=== PATIENT | female | born 1970 | race Caucasian/White ===

== ENCOUNTER 2019-03-19 10:22 | Inpatient (IN) | payer OTHER ==
[~2019-03-19] VITALS: Ht 167.6 cm; Wt 54.2 kg
[2019-03-19 10:31] VITALS: BP 207/158
[2019-03-19] MEDS ORDERED: NORVASC2.5 MG PO (10:34)
[2019-03-19] MEDS ORDERED: COREG6.25 MG PO (10:35)
[2019-03-19 11:55] LABS: ABSOLUTE BASOPHILS 0.1 thou/uL (0.0-0.2); ABSOLUTE EOSINOPHILS 0.1 thou/uL (0.0-0.7); ABSOLUTE LYMPHOCYTES 1.5 thou/uL (0.8-5.3); ABSOLUTE MONOCYTES 0.9 thou/uL (0.0-1.2); BASOPHILS 0.9 %; EOSINOPHILS 1.1 %; HEMATOCRIT 43.6 % (37.0-47.0); HEMOGLOBIN 14.6 gm/dL (12.0-15.0); LYMPHOCYTES 17.6 %; MCH 31.2 pg (26.0-34.0); MCHC 33.5 g/dL (28.0-37.0); MCV 93.2 fL (80.0-100.0); MONOCYTES 10.5 %; MPV 9.5 fl. (7.2-11.1); NUCLEATED RBCS 0 /100WBC; PLATELET COUNT* 206 thou/uL (150-400); POLYS 69.9 %; RBC 4.67 mil/uL (4.20-5.00); WBC 8.5 thou/uL (4.0-11.0)
[2019-03-19 12:10] LABS: ANION GAP 8 mmol/L (7-16); BUN 41 mg/dL (7-18); CALCIUM 9.1 mg/dL (8.5-10.1); CHLORIDE 105 mmol/L (98-107); CO2 26 mmol/L (21-32); CREATININE 1.7 mg/dL (0.6-1.3); GLUCOSE 103 mg/dL (70-99); POTASSIUM 3.9 mmol/L (3.5-5.1); SODIUM 139 mmol/L (136-145)
[2019-03-19 12:26] LABS: ALKALINE PHOSPHATASE 87 U/L (46-116); NT-PRO BRAIN NAT PEPTIDE > 35000 pg/mL (<300); SGOT 28 U/L (15-37); SGPT 40 U/L (30-65); TOTAL BILIRUBIN 0.9 mg/dL (<0.1-1.0); TOTAL PROTEIN 6.9 g/dL (6.4-8.2); TROPONIN-I LEVEL 0.14 ng/mL (<0.06)
[2019-03-19 14:34] LABS: URINE BILIRUBIN NEGATIVE (Negative); URINE BLOOD 1+ (Negative); URINE CLARITY CLEAR; URINE COLOR YELLOW; URINE GLUCOSE-RANDOM NEGATIVE (Negative); URINE KETONES NEGATIVE (Negative); URINE LEUKOCYTES-REFLEX NEGATIVE (Negative); URINE PROTEIN 2+ (Negative); URINE UROBILINOGEN 0.2 E.U./dl (0.2-1.0)
[2019-03-19 14:36] LABS: URINE NITRITE-REFLEX POSITIVE (Negative)
[2019-03-19 14:41] LABS: SQUAMOUS >10 Many /LPF (0-3)
[2019-03-19 14:42] LABS: URINE RBC 0-2 Rare /HPF (0-2); URINE WBC-REFLEX 0-5 Rare /HPF (0-5)
[2019-03-19 14:43] LABS: BACTERIA-REFLEX 1-9 Few /HPF (None Seen); CRYSTALS None Seen /LPF (None Seen); HYALINE CASTS 0-3 Few /LPF (None Seen); MUCUS None Seen strn/LPF (None Seen)
[2019-03-19 15:50] VITALS: BP 194/119
[2019-03-19 16:15] VITALS: BP 182/110
[2019-03-19 18:55] VITALS: BP 173/113
[2019-03-19 20:00] VITALS: BP 152/104
[2019-03-19 23:48] LABS: AMP/METHAMP POSITIVE (Negative); BARBITURATES Negative (Negative); BENZODIAZEPINES Negative (Negative); COCAINE Negative (Negative); METHADONE Negative (Negative); OPIATES Negative (Negative); PCP Negative (Negative); THC POSITIVE (Negative)
[2019-03-19 23:49] LABS: CALCIUM 8.8 mg/dL (8.5-10.1); CREATININE 2.1 mg/dL (0.6-1.3); MAGNESIUM 2.1 mg/dL (1.8-2.4); POTASSIUM 3.4 mmol/L (3.5-5.1)
[2019-03-20] VITALS (7 sets, daily range): BP systolic 119–182; BP diastolic 84–111
--- NOTE | 2019-03-20 14:16 | 2DMMODE ---
[place] [address] 2 D/M-MODE ECHOCARDIOGRAM Name: EDNA WITT Room: [address] IN .R.#: [id number] Admission: 03/19/19 Attend Phys: Valentin Bonilla Discharge: Date of : 70 Date of Service: 03/20/19 1415 Report #: [id number] THIS REPORT FOR: //name// APPROVED REPORT Study performed: 03/20/2019 11:22:08 EXAM: Comprehensive 2D, Doppler, and color-flow Echocardiogram Patient Location: Bedside BSA: 1.59 HR: 64 bpm BP: 147/96 mmHg Other Information Study Quality: Good Indications Dyspnea 2D Dimensions IVSd: 13.27 (7-11mm) LVOT Diam: 20.76 (18-24mm) LVDd: 48.31 mm PWd: 12.43 (7-11mm) Ascending Ao: 31.45 (22-36mm) LVDs: 35.25 (25-40mm) Aortic Root: 30.45 mm Volumes Left Atrial Volume (Systole) LA ESV Index: 30.30 mL/m2 Aortic Valve AoV Peak Stefano.: 1.36 m/s AO Peak Gr.: 7.45 mmHg LVOT Max P.47 mmHg AO Mean Gr.: 4.18 mmHg LVOT Mean P.80 mmHg LVOT Max V: 0.93 m/s AO V2 VTI: 17.46 cm LVOT Mean V: 0.62 m/s HUGO (VTI): 2.65 cm2 LVOT V1 VTI: 13.67 cm Mitral Valve E/A Ratio: 1.04 MV Decel. Time: 229.99 ms MV E Max Stefano.: 0.65 m/s MV PHT: 66.70 ms MVA (PHT): 3.30 [place] [address] 2 D/M-MODE ECHOCARDIOGRAM Name: EDNA WITT Room: [address] IN [facility]#: [id number] Admission: 03/19/19 Attend Phys: Valentin Bonilla Discharge: Date of : 70 Date of Service: 03/20/19 1415 Report #: [id number] TDI E/Lateral E': 10.83 E/Medial E': 13.00 Medial E' Stefano.: 0.05 m/s Lateral E' Stefano.: 0.06 m/s Pulmonary Valve PV Peak Stefano.: 1.00 m/s PV Peak Gr.: 3.96 mmHg Tricuspid Valve RAP Estimate: 5.00 mmHg TR Peak Gr.: 32.16 mmHg RVSP: 37.16 mmHg PA Pressure: 37.16 mmHg Left Ventricle The left ventricle is normal size. There is moderate diffuse hypokinesis of left ventricular wall motion. Moderate to severe concentric left ventricular hypertrophy. Left ventricular systolic function is moderately decreased. LVEF is 35-40%. The left ventricular diastolic function is normal. Right Ventricle The right ventricle is normal size. The right ventricular systolic function is normal. Atria Left atrium is mildly dilated. The right atrium size is normal. Aortic Valve Mild aortic valve sclerosis. Trace aortic regurgitation. There is no aortic valvular stenosis. Mitral Valve The mitral valve is normal in structure. Trace mitral regurgitation. No evidence of mitral valve stenosis. Tricuspid Valve The tricuspid valve is normal in structure. Trace tricuspid regurgitation. Pulmonic Valve The pulmonary valve is normal in structure. There is no pulmonic valvular regurgitation[place] [address] 2 D/M-MODE ECHOCARDIOGRAM Name: MIRYAMEDNA Maguire Narcisa Room: [address]#: [id number] Admission: 03/19/19 Attend Phys: Valentin Bonilla Discharge: Date of : 70 Date of Service: 03/20/19 1415 Report #: [id number] The aortic root is normal in size. IVC is normal in size and collapses >50% with inspiration. Pericardium There is a pericardial effusion. <Conclusion> The left ventricle is normal size. Moderate to severe concentric left ventricular hypertrophy. Left ventricular systolic function is moderately decreased. LVEF is 35-40%. The right ventricle is normal size. Left atrium is mildly dilated. Mild aortic valve sclerosis. There is no aortic valvular stenosis. Trace aortic regurgitation. The mitral valve is normal in structure. Trace mitral regurgitation. The tricuspid valve is normal in structure. IVC is normal in size and collapses >50% with inspiration. There is a pericardial effusion. There is moderate diffuse hypokinesis of left ventricular wall motion. <ELECTRONICALLY SIGNED> By: Fernando Moffett MD, FACC 03/20/19 1415 1415 1415 Fernando Moffett MD, FACC /INF
[2019-03-20 16:11] LABS: HEPATITIS B SURFACE AG Negative (Negative)
--- NOTE | 2019-03-20 16:59 | EKG ---
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 Therapist: LUNA : 1970 Requested By: Neeru Joseph Order Number: [id number] MD: Fernando Moffett Measurements Intervals [place] Rate: 82 P: 53 FL: 143 QRS: 42 QRSD: 83 T: 78 QT: 352 QTc: 411 Interpretive Statements Sinus rhythm Left atrial enlargement LVH with secondary repolarization abnormality Anterior infarct, age indeterminate Baseline wander in lead(s) V3 No previous ECG available for comparison Electronically Signed On 03-20-2019 16:59:02 CDT by Fernando Moffett [email or web address] <ELECTRONICALLY SIGNED> By: Fernando Moffett MD, [facility] 03/20/19 1659 1138 1138 Fernando Moffett MD, [facility] /EPI
--- NOTE | 2019-03-20 17:04 | EKG ---
[place] [address] ELECTROCARDIOGRAM REPORT Name: EDNA WITT Room: [address] ADM IN M.R.#: [id number] Admission: 03/19/19 Attend Phys: Sierra Smyth Discharge: Date of : 70 Report #: [id number] THIS REPORT FOR: //name// [facility] Test Date: 2019-03-19 Test Time: 18:52:01 Pat Name: EDNA WITT Department: Room: [address] Gender: F Chip Mucker: JOSE FREITAS : 1970 Requested By: Valentin Bonilla Order Number: [id number] Lalo MD: Fernando Moffett Measurements Intervals [place] Rate: 84 P: 53 SC: 141 QRS: 20 QRSD: 86 T: 244 QT: 398 QTc: 471 Interpretive Statements Sinus rhythm Left atrial enlargement LVH with secondary repolarization abnormality Baseline wander in lead(s) V6 No previous ECG available for comparison Electronically Signed On 03-20-2019 17:03:59 CDT by Fernando Moffett [email or web address] <ELECTRONICALLY SIGNED> By: Fernando Moffett MD, [facility] 03/20/19 1705 185 51 Fernando Moffett MD, [facility] /EPI
[2019-03-21] VITALS (7 sets, daily range): BP systolic 161–179; BP diastolic 96–114
[2019-03-21] MEDS ORDERED: CARVEDILOL12.5 MG PO (11:33)
[2019-03-21] MEDS ORDERED: AMLODIPINE BESYL5 M1 PO (11:33)
[2019-03-21] MEDS ORDERED: ZESTRIL40 MG PO (11:33)
--- NOTE | 2019-03-21 13:04 | CARDNUC ---
[place] [address] CARDIAC NUCLEAR IMAGING REPORT Name: MIRYAMEDNA Narcisa Room: [address] IN [facility]#: [id number] Admission: 03/19/19 Attend Phys: Valentin Bonilla Discharge: Date of : 70 Date of Service: 03/21/19 1304 Report #: [id number] THIS REPORT FOR: //name// APPROVED REPORT Imaging Protocol: Rest Tc-99m/Stress Tc-99m 1 day Study performed: 03/21/2019 09:24:07 Indication: Congestive Heart Failure, Troponin elevation, Cardiomyopathy, Dyspnea Patient Location: In-Patient Room #: [facility] Stress Tech: Dania Clarke Stress Nurse: Erica Gee RN NM Tech:DANIEL Pisano Ht: 5 ft 5 in Wt: 119 lbs BSA: 1.59 m2 BMI: 19.80 Medical History Medical History: Cardiomyopathy, CHF, Current Smoker, Fatigue, HTN, No history of CAD, SOB, Weakness, HX TIA's. Medications: Coreg, Amlodipine, Lisinopril. Allergies: No known drug allergies Cardiac Risk Factors: Current Smoker, HTN, SOB, CHF, Elevated Troponins. Previous Cardiac Procedures: None Pretest Chest Pain Characteristics: No chest pain Exercise History: Physically active Physical Disabilities: Generalized weakness/fatigue. Meds Held (24 hrs): Coreg held 12 hours. Resting Data Rest SPECT myocardial perfusion imaging was performed in supine position 30 minutes following the intravenous injection of 10.4 mCi of Tc-99m Sestamibi. Time of rest injection: 0800 Date: 03/21/2019 The images were gated to evaluate regional wall motion and calculate left ventricular ejection fraction. Administration Route: IV Administration Site: Right AC Pharmacologic Stress Pharmacologic stress test was performed by injecting Regadenoson 0.4 mg IV push over 10-15 seconds immediately [place] [address] CARDIAC NUCLEAR IMAGING REPORT Name: EDNA WITT Room: [address] IN [facility]#: [id number] Admission: 03/19/19 Attend Phys: Valentin Bonilla Discharge: Date of : 70 Date of Service: 03/21/19 1304 Report #: [id number] injection of 34.1 mCi of Tc-99m Sestamibi. Time of stress injection: 934 Date: 03/21/2019 Administration Route: IV Administration Site: Right AC Gated Stress SPECT was performed 40 minutes after stress injection. The images were gated to evaluate regional wall motion and calculate left ventricular ejection fraction. Prone imaging was performed. Stress Test Details Stress Test: Pharmacologic stress was paired with low level exercise. Reason for pharmacologic stress test: Generalized weakness/fatigue.. HR Max Heart Rate (APMHR): 172 bpm Resting HR: 72 bpm Target HR (85% APMHR): 146 bpm Max HR Achieved: 111 bpm % of APMHR: 64 Recovery HR: 75 bpm BP Resting BP: 194/111 mmHg Max BP: 225/120 mmHg Recovery BP: 179/111 mmHg ECG Resting ECG: Sinus Rhythm, LVH with repolarization changes Stress ECG: Sinus Rhythm, LVH with repolarization changes ST Change: None Arrhythmia: None Recovery ECG: Sinus Rhythm, LVH with repolarization changes Recovery ST Change: None Recovery Arrhythmia: None Clinical Reason for Termination: Completed protocol Stress Symptoms: Dyspnea, Flushed, Fatigue. Exercise duration: 4 min 00 sec Exercise capacity: 2.30 METs The patient tolerated Lexiscan infusion [place] [address] CARDIAC NUCLEAR IMAGING REPORT Name: EDNA WITT Room: [address]#: [id number] Admission: 03/19/19 Attend Phys: Valentin Bonilla Discharge: Date of : 70 Date of Service: 03/21/19 1304 Report #: [id number] Nurse Comments 48 year old female inpatient presented with recent increased SOA and elevated troponins. Patient tolerated walking Lexiscan with minimal symptoms with HTN noted and monitored. Recovery unremarkable. Patient escorted via wheelchair by staff to Nuclear Medicine for images. Patient stable with no complaints at that time. Patient given Coreg for HTN during recovery. Stress ECG Conclusion The baseline 12-lead EKG shows sinus rhythm with left ventricular hypertrophy and repolarization abnormality. EKGs obtained during and post Lexiscan infusion show sinus rhythm and sinus tachycardia with no significant ST or T wave changes when compared to baseline. There were no significant stress-induced arrhythmias. Study Quality Study: Good Artifact: No artifact Study Data At rest, the left ventricular ejection fraction was 36%.. Post stress, the left ventricular ejection was 32%.. TID = 1.05. Perfusion Normal left ventricular perfusion. Wall Motion There is moderate to severe global hypokinesis. Nuclear Conclusion ECG Findings: non-diagnostic Clinical Findings: negative for ischemia Nuclear Findings: negative for ischemia Exercise Capacity: not assessed Left Ventricular Function: abnormal Perfusion studies show no defect to suggest infarct or ischemia. The left ventricle is dilated. There is moderate to severe global hypokinesis. Findings consistent with nonischemic cardiomyopathy. This is a moderate to high risk study based on moderate to severe LV systolic dysfunction. <Conclusion> The baseline 12-lead EKG shows sinus rhythm with left ventricular hypertrophy and repolarization abnormality. EKGs obtained during and post Lexiscan infusion show sinus rhythm [place] [address] CARDIAC NUCLEAR IMAGING REPORT Name: EDNA WITT Narcisa Room: [address]#: [id number] Admission: 03/19/19 Attend Phys: Valentin Bonilla Discharge: Date of : 70 Date of Service: 03/21/19 1304 Report #: [id number] or T wave changes when compared to baseline. There were no significant stress-induced arrhythmias. <ELECTRONICALLY SIGNED> By: Garfield Griffith MD, FACC 03/21/19 1304 1304 1304 Garfield Griffith MD, FACC /INF
[2019-03-21 15:13] LABS: CALCIUM 8.6 mg/dL (8.5-10.1); CREATININE 2.4 mg/dL (0.6-1.3); POTASSIUM 4.4 mmol/L (3.5-5.1)
[2019-03-22] VITALS: BP 149/102
[2019-03-22 04:00] VITALS: BP 166/102
[2019-03-22 05:37] LABS: ABSOLUTE BASOPHILS 0.1 thou/uL (0.0-0.2); ABSOLUTE EOSINOPHILS 0.1 thou/uL (0.0-0.7); ABSOLUTE LYMPHOCYTES 2.5 thou/uL (0.8-5.3); ABSOLUTE MONOCYTES 0.9 thou/uL (0.0-1.2); ABSOLUTE NEUTROPHILS 3.9 thou/uL (1.6-8.1); BASOPHILS 0.8 %; EOSINOPHILS 1.8 %; HEMATOCRIT 40.6 % (37.0-47.0); HEMOGLOBIN 13.6 gm/dL (12.0-15.0); LYMPHOCYTES 33.3 %; MCH 31.2 pg (26.0-34.0); MCHC 33.5 g/dL (28.0-37.0); MCV 93.1 fL (80.0-100.0); MONOCYTES 11.6 %; MPV 9.5 fl. (7.2-11.1); NUCLEATED RBCS 0 /100WBC; PLATELET COUNT* 219 thou/uL (150-400); POLYS 52.5 %; RBC 4.36 mil/uL (4.20-5.00); WBC 7.5 thou/uL (4.0-11.0)
[2019-03-22 06:03] LABS: CALCIUM 8.8 mg/dL (8.5-10.1); CREATININE 2.1 mg/dL (0.6-1.3)
[2019-03-22 08:00] VITALS: BP 164/110
[2019-03-22 12:39] VITALS: BP 163/108
== END 2019-03-22 13:10 | disposition home or self-care (01) | DRG 280 ==
LOC: M.ERS 10:22 → M.TBA-ER 14:08 → M.2W 14:08
PROVIDERS: Nurse Practitioner Family; Registered Nurse; ADMIT Internal Medicine
DX: I21.4 Non-ST elevation (NSTEMI) myocardial infarction (principal); J15.6 Pneumonia due to other Gram-negative bacteria; I50.43 Acute on chronic combined systolic (congestive) and diastolic (congestive) heart failure; N39.0 Urinary tract infection, site not specified; I42.9 Cardiomyopathy, unspecified; N17.9 Acute kidney failure, unspecified; F19.10 Other psychoactive substance abuse, uncomplicated; F17.200 Nicotine dependence, unspecified, uncomplicated; I11.0 Hypertensive heart disease with heart failure; Z90.710 Acquired absence of both cervix and uterus; Z71.6 Tobacco abuse counseling

== ENCOUNTER 2020-01-19 01:35 | Emergency (ER) | payer OTHER ==
[~2020-01-19] VITALS: Ht 167.6 cm; Wt 52.6 kg
[~2020-01-19 01:35] MED LIST: AMLODIPINE BESYL5 M1 PO; CARVEDILOL12.5 MG PO; COREG6.25 MG PO; NORVASC2.5 MG PO; ZESTRIL40 MG PO
[2020-01-19] MEDS ORDERED: CLONIDINE HCL0.2 M2 PO (01:52)
[2020-01-19] MEDS ORDERED: NORCO 5-325 TA1 EAC1 PO (01:53)
[2020-01-19] MEDS ORDERED: DULOXETINE HCL30 MG PO (01:53)
[2020-01-19] MEDS ORDERED: SODIUM BICARBO650 M3 PO (01:54)
[2020-01-19] MEDS ORDERED: LIPITOR40 MG PO (01:55)
[2020-01-19] MEDS ORDERED: ASA81BEC PO (01:55)
[2020-01-19] MEDS ORDERED: RENAL-VITE TAB0.8 MG PO (01:56)
[2020-01-19] MEDS ORDERED: FUROSEMIDE 20 M20 MG PO (01:56)
[2020-01-19] MEDS ORDERED: NORVASC 2.5 MG2.5 M1 PO (01:57)
[2020-01-19] MEDS ORDERED: CARVEDILOL25 MG PO (01:58)
[2020-01-19] MEDS ORDERED: HYDRALAZINE HC100 MG PO (01:58)
[2020-01-19] MEDS ORDERED: COLACE 100 MG100 MG PO (01:58)
[2020-01-19 02:01] LABS: ABSOLUTE BASOPHILS 0.1 thou/uL (0.0-0.2); ABSOLUTE EOSINOPHILS 0.2 thou/uL (0.0-0.7); ABSOLUTE LYMPHOCYTES 0.9 thou/uL (0.8-5.3); ABSOLUTE MONOCYTES 1.2 thou/uL (0.0-1.2); ABSOLUTE NEUTROPHILS 8.2 thou/uL (1.6-8.1); BASOPHILS 0.9 %; HEMOGLOBIN 11.4 gm/dL (12.0-15.0); LYMPHOCYTES 8.7 %; MCH 28.1 pg (26.0-34.0); MCHC 33.5 g/dL (28.0-37.0); MONOCYTES 11.5 %; MPV 8.6 fl. (7.2-11.1); NUCLEATED RBCS 0 /100WBC; PLATELET COUNT* 676 thou/uL (150-400); POLYS 76.9 %; RBC 4.05 mil/uL (4.20-5.00); WBC 10.7 thou/uL (4.0-11.0)
[2020-01-19 02:05] LABS: CALCIUM 8.7 mg/dL (8.5-10.1); CREATININE 3.2 mg/dL (0.6-1.3); POTASSIUM 4.3 mmol/L (3.5-5.1)
[2020-01-19 02:08] LABS: APTT 27.3 Seconds (25.0-31.3); INR 1.2; PROTIME 12.7 Seconds (9.20-11.50)
[2020-01-19 02:15] LABS: ALBUMIN 2.6 g/dL (3.4-5.0); TOTAL BILIRUBIN 0.4 mg/dL (<0.1-1.0); TOTAL PROTEIN 8.2 g/dL (6.4-8.2)
[2020-01-19 04:33] VITALS: BP 159/80
--- NOTE | 2020-01-19 11:08 | EKG ---
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: : 1970 Requested By: Rosa M Rodriguez Order Number: [id number] Lalo MD: Fernando Moffett Measurements Intervals [place] Rate: 84 P: 39 [place]: 142 QRS: 2 QRSD: 94 T: 92 QT: 373 QTc: 441 Interpretive Statements Sinus rhythm Probable left atrial enlargement LVH with secondary repolarization abnormality Compared to ECG 03/19/2019 18:52:01 No significant changes Electronically Signed On 01-19-2020 11:06:44 CDT by Fernando Moffett [email or web address] <ELECTRONICALLY SIGNED> By: Fernando Moffett MD, [facility] 01/19/20 1106 0139 0139 Fernando Moffett MD, [facility] /EPI
--- NOTE | 2020-01-19 11:08 | EKG ---
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: : 1970 Requested By: Rosa M Rodriguez Order Number: [id number] MD: Fernando Moffett Measurements Intervals [place] Rate: 67 P: 37 [place]: 148 QRS: 4 QRSD: 91 T: 94 QT: 420 QTc: 444 Interpretive Statements Sinus rhythm Probable LVH with secondary repol abnrm Compared to ECG 03/19/2019 18:52:01 Atrial abnormality no longer present Electronically Signed On 01-19-2020 11:07:00 CDT by Fernando Moffett [email or web address] <ELECTRONICALLY SIGNED> By: Fernando Moffett MD, [facility] 01/19/20 1107 0359 0359 Fernando Moffett MD, [facility] /EPI
== END 2020-01-19 04:34 | disposition short-term general hospital (02) ==
LOC: M.ERS 01:35
PROVIDERS: Personal Emergency Response Attendant
DX: I16.0 Hypertensive urgency (principal); N17.9 Acute kidney failure, unspecified; R07.89 Other chest pain; J90 Pleural effusion, not elsewhere classified; I13.0 Hypertensive heart and chronic kidney disease with heart failure and stage 1 through stage 4 chronic kidney disease, or unspecified chronic kidney disease; N18.9 Chronic kidney disease, unspecified; I50.9 Heart failure, unspecified; Z90.710 Acquired absence of both cervix and uterus

== ENCOUNTER 2020-03-31 15:15 | Observation (INO) | payer OTHER, MEDICAID ==
[~2020-03-31] VITALS: Ht 167.6 cm; Wt 46.3 kg
[~2020-03-31 15:15] MED LIST changes: +ASA81BEC PO; +CARVEDILOL25 MG PO; +CLONIDINE HCL0.2 M2 PO; +COLACE 100 MG100 MG PO; +DULOXETINE HCL30 MG PO; +FUROSEMIDE 40 M40 MG PO; +HYDRALAZINE HC100 MG PO; +LIPITOR40 MG PO; +NORCO 5-325 TA1 EAC1 PO; +NORVASC 2.5 MG2.5 M1 PO; +RENAL-VITE TAB0.8 MG PO; +SODIUM BICARBO650 M3 PO
[2020-03-31 15:20] VITALS: BP 241/151
[2020-03-31 15:30] LABS: URINE BILIRUBIN NEGATIVE (Negative); URINE BLOOD 1+ (Negative); URINE CLARITY CLEAR; URINE COLOR YELLOW; URINE GLUCOSE-RANDOM NEGATIVE (Negative); URINE KETONES NEGATIVE (Negative); URINE LEUKOCYTES-REFLEX NEGATIVE (Negative); URINE NITRITE-REFLEX NEGATIVE (Negative); URINE PROTEIN 3+ (Negative); URINE SPECIFIC GRAVITY 1.025 (1.005-1.030); URINE UROBILINOGEN 0.2 E.U./dl (0.2-1.0)
[2020-03-31] MEDS ORDERED: GABAPENTIN100 MG PO (15:42)
[2020-03-31] MEDS ORDERED: INDOMETHACIN 5050 M1 (15:42)
[2020-03-31 15:45] LABS: MUCUS 0-3 Light strn/LPF (None Seen); SQUAMOUS >10 Many /LPF (0-3)
[2020-03-31 15:45] LABS: ABSOLUTE BASOPHILS 0.1 thou/uL (0.0-0.2); ABSOLUTE EOSINOPHILS 0.1 thou/uL (0.0-0.7); ABSOLUTE LYMPHOCYTES 1.4 thou/uL (0.8-5.3); ABSOLUTE NEUTROPHILS 7.3 thou/uL (1.6-8.1); BASOPHILS 0.9 %; EOSINOPHILS 0.8 %; HEMATOCRIT 34.6 % (37.0-47.0); HEMOGLOBIN 11.6 gm/dL (12.0-15.0); LYMPHOCYTES 14.4 %; MCH 28.8 pg (26.0-34.0); MCHC 33.3 g/dL (28.0-37.0); MCV 86.3 fL (80.0-100.0); MONOCYTES 9.9 %; NUCLEATED RBCS 0 /100WBC; PLATELET COUNT* 196 thou/uL (150-400); RBC 4.02 mil/uL (4.20-5.00); RDW-CV 22.6 % (10.5-14.5); WBC 9.8 thou/uL (4.0-11.0)
[2020-03-31 15:46] LABS: BACTERIA-REFLEX 1-9 Few /HPF (None Seen); CRYSTALS None Seen /LPF (None Seen); FINE GRANULAR CASTS 0-3 Few /LPF (None Seen); HYALINE CASTS 0-3 Few /LPF (None Seen); URINE WBC-REFLEX 6-15 Few /HPF (0-5)
[2020-03-31 15:47] LABS: URINE RBC 3-10 Few /HPF (0-2)
[2020-03-31 15:54] LABS: ANION GAP 12 mmol/L (7-16); APTT 28.9 Seconds (25.0-31.3); BUN 55 mg/dL (7-18); CALCIUM 8.8 mg/dL (8.5-10.1); CHLORIDE 102 mmol/L (98-107); CO2 24 mmol/L (21-32); GLUCOSE 138 mg/dL (70-99); INR 1.3; POTASSIUM 3.9 mmol/L (3.5-5.1); PROTIME 13.5 Seconds (9.20-11.50); SODIUM 138 mmol/L (136-145)
[2020-03-31 16:04] LABS: ALBUMIN 3.6 g/dL (3.4-5.0); ALKALINE PHOSPHATASE 89 U/L (46-116); SGOT 19 U/L (15-37); SGPT 25 U/L (30-65); TOTAL BILIRUBIN 1.4 mg/dL (<0.1-1.0); TOTAL PROTEIN 8.2 g/dL (6.4-8.2)
[2020-03-31 16:05] LABS: NT-PRO BRAIN NAT PEPTIDE > 3500 pg/mL (<300)
[2020-03-31 16:16] LABS: ANISOCYTOSIS 2+
[2020-03-31 16:18] LABS: PLATELET ESTIMATE ADEQUATE
[2020-03-31 18:17] LABS: AMP/METHAMP POSITIVE (Negative); BARBITURATES Negative (Negative); BENZODIAZEPINES Negative (Negative); COCAINE Negative (Negative); METHADONE Negative (Negative); OPIATES Negative (Negative); PCP Negative (Negative); THC POSITIVE (Negative)
[2020-03-31 19:30] VITALS: BP 167/85
[2020-04-01] VITALS (12 sets, daily range): BP systolic 120–151; BP diastolic 56–77
--- NOTE | 2020-04-01 04:17 | NUR ---
RECIEVED PT FROM ER ARROUND , AMBULATORY AND WITH CARDIPINE DRIP AT 5MG/HR. PT WAS SINUS TACHYCARDIA AND BP SYSTOLIC STILL ABOVE 170, CARDIPINE TITRATED UP TO 10MG/HR. INFORM HIMS PT IN ICU WITH ORDERS MADE AND CARRIED OUT. HTN MEDS STARTED AND DC CARDIPINE DRIP. INFORM CARDIOLORY WITH NO FURTHER ORDER AND TO INFORM HIM IF PT DEVELOVES CHEST PAIN, CHANGES IN EKG AND TROPONIN OF 0.7. ACCORDING TO PT, DOCTORS FROM [facility] WHERE SHE WAS ADMITTED RECENTLY ADVICE HER TO AVOID TAKING IBUPROFEN BECAUSE OF HER KIDNEY PROBLEM. TYLENOL GIVEN FOR PAIN. NO DISTRESS AND BP WAS STABLE. CONTINUE MONITORING AND TOWARD GOALS.
[2020-04-01] MEDS ORDERED: CLONIDINE HCL0.2 M2 PO (09:59)
[2020-04-01] MEDS ORDERED: CARVEDILOL25 MG PO (09:59)
[2020-04-01] MEDS ORDERED: LIPITOR40 MG PO (09:59)
[2020-04-01] MEDS ORDERED: NORVASC 2.5 MG2.5 M1 PO (09:59)
[2020-04-01] MEDS ORDERED: HYDRALAZINE HC100 MG PO (09:59)
--- NOTE | 2020-04-01 10:38 | NUR ---
CASE MANAGEMENT CONSULTED FOR PRIMARY CARE FOLLOW UP OPTIONS.
--- NOTE | 2020-04-01 11:13 | NUR ---
ASSESSMENT CHARTED. VSS THIS MORNING. SCRIPTS SENT TO PATIENT'S PHARMACY SHE WAS OUT OF SEVERAL MEDS AT HOME. ALL DISCHARGE INSTRUCTIONS GONE OVER WITH PATIENT. NO QUESTIONS AT THIS TIME. DISCHARGING HOME WITH SON.
--- NOTE | 2020-04-01 11:20 | EKG ---
[place] [address] ELECTROCARDIOGRAM REPORT Name: EDNA WITT Room: [address]R.#: [id number] Admission: 03/31/20 Attend Phys: Louise Teixeira, Discharge: Date of : 70 Date of Service: 03/31/20 1526 Report #: [id number] THIS REPORT FOR: //name// [facility] ED Test Date: 2020-03-31 Test Time: 15:26:33 Pat Name: EDNA WITT Department: Room: [facility] Gender: F Seo Associate: : 1970 Requested By: Kaleb Dominguez Order Number: [id number] MD: Matthieu Perez Measurements Intervals [place] Rate: 105 P: 51 [place]: 139 QRS: 22 QRSD: 89 T: 79 QT: 364 QTc: 482 Interpretive Statements Sinus tachycardia Probable left atrial enlargement LVH with secondary repolarization abnormality Compared to ECG 01/19/2020 03:59:06 Sinus rhythm no longer present Electronically Signed On 04-01-2020 11:19:59 CDT by Matthieu Perez [email or web address] <ELECTRONICALLY SIGNED> By: Matthieu Perez MD, [facility] 04/01/20 1119 1526 1526 Matthieu Perez MD, [facility] /EPI
--- NOTE | 2020-04-01 16:24 | CON ---
[address] [address] CONSULTATION Name: EDNA WITT Room: [address] Fredrick Garner#: [id number] Admission: 03/31/20 Attend Phys: Louise Teixeira MD Discharge: 04/01/20 Date of : 70 Report #: [id number] THIS REPORT FOR: //name// cc: ILANA Bridges family physician/PCP ILANA - No family physician/PCP ~ THIS REPORT FOR: //name// CC: ILANA physician/PCP Louise Teixeira DATE OF SERVICE: 04/01/2020 CARDIOLOGY CONSULTATION HISTORY OF PRESENT ILLNESS: The patient is a 49-year-old single white female who I was asked to see in the hospital after she was noted to have elevated blood pressure. The patient has an extensive and complicated past medical history. She has a long history of hypertension and noncompliance. Unfortunately, she has had no medical insurance in the past. She was actually admitted to [facility] a year ago with hypertension. She apparently was drinking alcohol and using methamphetamines. She became short of breath. She had not been taking her medications at that time and her blood pressure is elevated. She underwent a cardiac evaluation in 03/2019 here at [facility] included an echocardiogram that showed an ejection fraction of 35%, left atrial enlargement, aortic sclerosis. She underwent a nuclear stress test in 03/2019 looking for evidence of ischemia. She was given Lexiscan pharmacologic stress. Ejection fraction 36%. There was no evidence of ischemia or previous infarction. She is felt to have a cardiomyopathy secondary to her chronic hypertension. She was eventually discharged. She notes in December, she was working down at [facility] when she had chest pain. She was transferred by ambulance to [facility] on the [place]. She apparently was found to have evidence of an aortic dissection and had a thoracic stent graft placed through the left femoral artery. She was there for about 5 weeks and discharged. She apparently had to be readmitted in January to [facility] with a pleural effusion and required thoracentesis. The patient has a history of porphyria. Recently, she complained of no appetite, nausea and vomiting. She was brought to the Emergency Room yesterday. She states she cannot take any of her medications because of vomiting. Her blood pressure was extremely elevated. She is admitted for further evaluation and treatment. She denied any chest pain, shortness of breath, palpitations or syncope. PAST MEDICAL HISTORY: She has had previous hysterectomy. No diabetes. MEDICATIONS: Recently included clonidine, Lipitor, Lasix, amlodipine, hydralazine, carvedilol, [place] [address] CONSULTATION Name: EDNA WITT Room: [address] Fredrick M.RVero#: [id number] Admission: 03/31/20 Attend Phys: Louise Teixeira MD Discharge: 04/01/20 Date of : 70 Report #: [id number] ALLERGIES: SHE HAS PREVIOUS INTOLERANCE TO SULFA AND ADDERALL. FAMILY HISTORY: She is adopted. SOCIAL HISTORY: She is , lives with a friend in [place]. No longer working. Smokes less than half pack of cigarettes a day. She does use marijuana occasionally. No other illicit drugs. She denies IV drug abuse. REVIEW OF SYSTEMS: She has had no history of stroke or asthma. She does have chronic kidney disease, sees a tape editor. No cancer. No psychiatric illness. No chronic skin condition. PHYSICAL EXAMINATION: GENERAL: Revealed a middle-aged female lying in bed. She appeared in no distress. CURRENT VITAL SIGNS: She had blood pressure of 150/70, pulse is 80, she is afebrile. HEENT: She was anicteric. Conjunctivae pink. Mucous membranes moist. NECK: Veins nondistended. No carotid bruits. CHEST: Clear to auscultation. CARDIOVASCULAR: Regular rate and rhythm, grade 2 systolic ejection murmur. ABDOMEN: Soft. EXTREMITIES: Had no edema. SKIN: Cool and dry. NEUROLOGIC: Nonfocal. LABORATORY DATA: Her ECG showed a sinus rhythm, left ventricular hypertrophy, nonspecific ST-segment changes consistent with repolarization. Her lab work, she had portable chest x-ray yesterday that showed aortic stent graft, mild cardiomegaly, clear lung woo. No pleural effusion. She had a CT scan of the chest in the Emergency Room yesterday without contrast that showed aortic graft in place, hyperinflated lung woo. She had a CT scan of the abdomen that showed atrophic right kidney. Aortic graft from the thoracic to the aortic hiatus, small effusion. Her lab work, sodium 138, BUN 55, creatinine is 3.0, it was 2.4 year ago. Her liver function studies were normal. Troponin 0.09. BNP 3500. Her white blood cell count 9.8, hematocrit 34.6. IMPRESSION AND RECOMMENDATIONS: 1. Nausea, vomiting. Suspect secondary to porphyria . I would avoid dehydration. 2. Hypertension. The patient has been on multiple medications including clonidine, calcium liberty, hydralazine and beta liberty. I would resume her medications now she is able to swallow pills. 3. Chronic kidney disease. The patient followed by Nephrology. 4. History of aortic dissection, suspect secondary to hypertension. The patient recently had a stent graft placed at [address] [address] CONSULTATION Name: MIRYAMEDNA K Room: [address] MVeroRVero#: [id number] Admission: 03/31/20 Attend Phys: Louise Teixeira MD Discharge: 04/01/20 Date of : 70 Report #: [id number] 5. Tobacco abuse. 6. History of illicit drug use. <ELECTRONICALLY SIGNED> By: Matthieu Perez MD, FACC 04/01/20 1624 0936 1012Ddejuan Perez MD, FACC /nt
== END 2020-04-01 12:08 | disposition home or self-care (01) ==
LOC: M.ERS 15:15 → M.ICU 17:36 → M.TBA-ER 17:36 → M.ICU 19:04
PROVIDERS: Family Medicine; ADMIT Internal Medicine; ATTEND Internal Medicine
DX: I16.0 Hypertensive urgency (principal); I13.0 Hypertensive heart and chronic kidney disease with heart failure and stage 1 through stage 4 chronic kidney disease, or unspecified chronic kidney disease; I50.9 Heart failure, unspecified; N18.4 Chronic kidney disease, stage 4 (severe); F32.9 Major depressive disorder, single episode, unspecified; G62.9 Polyneuropathy, unspecified; F19.10 Other psychoactive substance abuse, uncomplicated; E80.21 Acute intermittent (hepatic) porphyria; F17.210 Nicotine dependence, cigarettes, uncomplicated

== ENCOUNTER 2020-11-07 12:53 | Emergency (ER) | payer OTHER, MEDICAID ==
[~2020-11-07] VITALS: Ht 172.7 cm; Wt 51.7 kg
[~2020-11-07 12:53] MED LIST changes: +GABAPENTIN100 MG PO; +INDOMETHACIN 5050 M1
[2020-11-07 13:38] LABS: ABSOLUTE EOSINOPHILS 0.1 thou/uL (0.0-0.7); ABSOLUTE LYMPHOCYTES 0.7 thou/uL (0.8-5.3); ABSOLUTE MONOCYTES 0.5 thou/uL (0.0-1.2); ABSOLUTE NEUTROPHILS 3.6 thou/uL (1.6-8.1); BASOPHILS 0.7 %; EOSINOPHILS 2.7 %; HEMATOCRIT 29.8 % (37.0-47.0); HEMOGLOBIN 9.8 gm/dL (12.0-15.0); LYMPHOCYTES 13.2 %; MCH 30.7 pg (26.0-34.0); MCHC 32.9 g/dL (28.0-37.0); MCV 93.5 fL (80.0-100.0); MONOCYTES 10.8 %; MPV 8.2 fl. (7.2-11.1); NUCLEATED RBCS 0 /100WBC; PLATELET COUNT* 184 thou/uL (150-400); POLYS 72.6 %; RBC 3.19 mil/uL (4.20-5.00); RDW-CV 17.6 % (10.5-14.5)
[2020-11-07 13:46] LABS: CALCIUM 8.3 mg/dL (8.5-10.1); CREATININE 3.6 mg/dL (0.6-1.3); POTASSIUM 4.9 mmol/L (3.5-5.1)
[2020-11-07 13:50] LABS: ALBUMIN 3.1 g/dL (3.4-5.0); TOTAL BILIRUBIN 0.4 mg/dL (<0.1-1.0); TOTAL PROTEIN 6.9 g/dL (6.4-8.2)
[2020-11-07 14:15] LABS: APTT 26.8 Seconds (25.0-31.3); INR 1.3; PROTIME 13.7 Seconds (9.20-11.50)
[2020-11-07 14:43] LABS: ESR (SEDRATE) 35 mm/hr (0-30)
--- NOTE | 2020-11-07 15:14 | EKG ---
[place] [address] ELECTROCARDIOGRAM REPORT Name: MIRYAMEDNA Narcisa Room: [facility]#: [id number] Admission: 11/07/20 Attend Phys: Discharge: Date of : 70 Date of Service: 11/07/20 1341 Report #: [id number] THIS REPORT FOR: //name// [facility] ED Test Date: 2020-11-07 Test Time: 13:41:03 Pat Name: EDNA WITT Department: Room: Gender: F Editorial Director: : 1970 Requested By: Martita Young Order Number: [id number] MD: Matthieu Perez Measurements Intervals [place] Rate: 77 P: 45 [place]: 146 QRS: 16 QRSD: 89 T: 140 QT: 374 QTc: 424 Interpretive Statements Sinus rhythm Left atrial enlargement LVH with secondary repolarization abnormality Baseline wander in lead(s) V5 Compared to ECG 03/31/2020 15:26:33 Sinus tachycardia no longer present Electronically Signed On 11-07-2020 15:13:52 REPORTS DEVELOPER by Matthieu Perez [email or web address] <ELECTRONICALLY SIGNED> By: Matthieu Perez MD, FAC 11/07/20 1513 1341 1341 Matthieu Perez MD, [facility] /EPI
[2020-11-07 15:38] LABS: AMP/METHAMP Negative (Negative); BARBITURATES Negative (Negative); BENZODIAZEPINES Negative (Negative); COCAINE Negative (Negative); METHADONE Negative (Negative); OPIATES Negative (Negative); PCP Negative (Negative); THC Negative (Negative)
[2020-11-07 18:06] VITALS: BP 194/110
== END 2020-11-07 18:06 | disposition short-term general hospital (02) ==
LOC: M.ERS 12:53
PROVIDERS: Physician Assistant
DX: H54.62 Unqualified visual loss, left eye, normal vision right eye (principal); R51.9 Headache, unspecified; R77.8 Other specified abnormalities of plasma proteins; I13.0 Hypertensive heart and chronic kidney disease with heart failure and stage 1 through stage 4 chronic kidney disease, or unspecified chronic kidney disease; N18.9 Chronic kidney disease, unspecified; I50.9 Heart failure, unspecified; Z79.899 Other long term (current) drug therapy; Z90.710 Acquired absence of both cervix and uterus; Z79.82 Long term (current) use of aspirin; Z88.2 Allergy status to sulfonamides; Z88.8 Allergy status to other drugs, medicaments and biological substances